=== PATIENT | male | born 1985 | race Caucasian/White ===

== ENCOUNTER 2016-05-19 17:11 | Emergency (ER) | payer SELFPAY ==
[~2016-05-19] VITALS: Ht 175.3 cm; Wt 77.6 kg
[2016-05-19 17:25] VITALS: BP 150/89
[2016-05-19] MEDS ORDERED: NACL 0.9% 1,000 ML IV ONE ×2 (19:27→20:50)
[2016-05-19] MEDS ORDERED: MORPHINE SULFATE 4 MG/ML SYR IVP ONE (19:30)
[2016-05-19] MEDS ORDERED: DICYCLOMINE HCL LIQUID 20 MG, ALUMINUM HYD/MAG/SIMETHICONE 30 ML, LIDOCAINE VISCOUS 2% ... PO ONE (19:30)
[2016-05-19] MEDS ORDERED: ONDANSETRON 4 MG/2 ML VIAL IVP ONE (19:30)
--- NOTE | 2016-05-19 19:53 | NUR ---
PATIENT PRESENTS TO ED WITH ALL FOUR QUADRANT ABD PAIN . PT STATES PAIN IS NOT RADIATING AND HAS BEEN ONGOING FOR A WEEK . DENIES N/V/D; SKIN IS PINK/WARM/DRY; AAOX4 WITH EVEN AND STEADY GAIT; LUNGS CLEAR BL; HR EVEN AND REGULAR; PT DENIES ANY FEVER, CP, SOB, OR COUGH AT THIS TIME; PATIENT STATES PAIN OF 10/10 AT THIS TIME; VSS; PATIENT POSITIONED FOR COMFORT; HOB ELEVATED; BEDRAILS UP X2; BED DOWN. ER MD MADE AWARE OF PT STATUS.
[2016-05-19] MEDS ORDERED: HYDROmorphone 1 MG/ML AMP IVP ONE ×2 (20:10→20:50)
--- NOTE | 2016-05-19 20:29 | NUR ---
PT TO CT AT THIS TIME
--- NOTE | 2016-05-19 20:43 | NUR ---
PT RETURNED FROM CT AT THIS TIME
[2016-05-19] MEDS ORDERED: PIPERACILLIN/TAZOBACTAM 3.375 GM in DEXTROSE 5% 50 ML IV ONE (20:50)
[2016-05-19] MEDS ORDERED: PIPERACILLIN/TAZOBACTAM 3.375 GM VIAL IV ONE (21:02)
--- NOTE | 2016-05-19 22:12 | NUR ---
Patient to be transferred to [facility]. Is being transferred due to HIGHER LEVEL OF CARE. Receiving facility has accepting physician and available space. ER physician has signed transfer form. Patient or responsible libertarian has agreed to transfer and signed form. Patient belongings inventoried and will be sent with patient. Copy of nursing notes, lab reports, EKG, Physicians Orders and X-rays to be sent with patient. Report called to KATHRYN LINARES at receiving facility. [facility] ambulance service has been called for transfer. ETA is 60MIN.
[2016-05-19 23:08] VITALS: BP 153/94
--- NOTE | 2016-05-19 23:09 | NUR ---
Pt report given to KATHRYN LINARES. Transfer of care at this time.
== END 2016-05-19 23:09 | disposition short-term general hospital (02) ==
LOC: MED 17:11
DX: S36.09XA Other injury of spleen, initial encounter (principal); K66.1 Hemoperitoneum; F17.200 Nicotine dependence, unspecified, uncomplicated; X58.XXXA Exposure to other specified factors, initial encounter; Y93.89 Activity, other specified; Y92.89 Other specified places as the place of occurrence of the external cause; Y99.8 Other external cause status
CPT/HCPCS: 36415; 74176; 80053; 83690; 85025; 96361; 96365; 96375; 96376; 99291; J1170; J2270; J2405; J2543; J7030; J7060